=== PATIENT | male | born 1955 | race Caucasian/White ===

== ENCOUNTER → 2023-12-16 08:57 | Outpatient (REF) | payer MEDICARE, OTHER, SELFPAY | LOC: RAD 08:57 | PROVIDERS: ATTENDING PHYSICIAN Internal Medicine Critical Care Medicine; FAMILY PHYSICIAN Nurse Practitioner | DX: R91.1 Solitary pulmonary nodule (principal); J84.9 Interstitial pulmonary disease, unspecified | CPT/HCPCS: 71250 ==

== ENCOUNTER → 2024-03-25 11:50 | Outpatient (REF) | payer MEDICARE, OTHER, SELFPAY | LOC: RAD 11:50 | PROVIDERS: ATTENDING PHYSICIAN Nurse Practitioner Family; FAMILY PHYSICIAN Nurse Practitioner | DX: R91.1 Solitary pulmonary nodule (principal) | CPT/HCPCS: 71250 ==

== ENCOUNTER → 2024-09-16 10:24 | Outpatient (REF) | payer MEDICARE, OTHER, SELFPAY | LOC: HWRAD 10:24 | PROVIDERS: ATTENDING PHYSICIAN Internal Medicine Critical Care Medicine; FAMILY PHYSICIAN Nurse Practitioner | DX: R91.1 Solitary pulmonary nodule (principal) | CPT/HCPCS: 71250 ==

== ENCOUNTER 2024-10-28 12:19 | Emergency (ER) | payer MEDICARE, OTHER, SELFPAY ==
[2024-10-28 12:21] VITALS: BP 129/77
[2024-10-28 12:38] LABS: % Basophils 0.8 % (0-2); % Immature Granulocytes 0.3 % (0-0.5); % Monocytes 5.5 % (1.7-9.3); % Neutrophils 72.4 % (42.2-75.2); Absolute Basophils 0.1 10^3/uL (0-0.2); Absolute Eosinophils 0.2 10^3/uL (0-0.7); Absolute Lymphocytes 1.5 10^3/uL (1.2-3.4); Absolute Monocytes 0.4 10^3/uL (0.1-0.6); Absolute Neutrophils 5.8 10^3/uL (1.4-6.5); Hematocrit 41.1 % (39.0-52.0); Hemoglobin 14.6 g/dL (13.0-18.0); Mean Corp Hgb Conc. 35.5 g/dL (33.0-37.0); Mean Corpuscular Hgb 35.5 pg (27.0-31.0); Mean Platelet Volume 9.9 fL (7.4-10.4); Nucleated Red Blood Cells % 0 % (-); Platelet Count 195 10^3/uL (130-400); Red Blood Cell Count 4.11 10^6/uL (4.70-6.10); Red Cell Dist. Width 12.4 % (11.5-14.5)
[2024-10-28 12:50] LABS: Urine Albumin Negative (Neg - Trace); Urine Bilirubin Negative (Negative); Urine Character Slightly Cloudy (Clear); Urine Color Yellow; Urine Glucose Negative (Negative); Urine Ketone Negative (Negative); Urine Leukocyte Negative (Negative); Urine Nitrite Negative (Negative); Urine Occult Blood Negative (Negative); Urine Specific Gravity 1.005 (<1.030); Urine Urobilinogen Negative (Neg - 1+)
[2024-10-28 12:52] LABS: ALT (SGPT) 37 U/L (0-50); AST (SGOT) 39 U/L (17-59); Albumin 4.2 g/dl (3.5-5.0); Alkaline Phosphatase 62 U/L (38-126); Blood Urea Nitrogen 18 mg/dl (9-20); Calcium 9.4 mg/dl (8.4-10.2); Carbon Dioxide 25 mmol/L (22-30); Chloride 107 mmol/L (98-107); Glucose 128 mg/dl (70-99); Lipase 63 U/L (23-300); Potassium 4.3 mmol/L (3.5-5.1); Sodium 140 mmol/L (135-145); Total Bilirubin 1.5 mg/dl (0.2-1.3); Total Protein 6.5 g/dl (6.3-8.2); eGFR > 60.00
--- NOTE | 2024-10-28 14:15 | ED.GENMED ---
History of Present Illness
General
Chief Complaint: Back Pain
Time Seen by Provider: 10/28/24 14:15
History of Present Illness
History of Present Illness:
TIME OF INITIAL ENCOUNTER: 2:15 PM
HPI: The patient presents with right flank pain ongoing for the past week. He also has abdominal pain in the right lower region however this been ongoing for about a year or so. He has tried ibuprofen intermittently which has not helped much. He
has no urinary symptoms. The pain worsens with certain position changes of the thoracolumbar spine. The pain is at its worst when he is laying flat.
EXAM:
GENERAL: Well appearing in no significant distress
HEENT: Moist oral mucosa
ABDOMEN: Soft with no peritoneal signs, no tenderness, no palpable hernias
NEUROLOGIC: Excellent strength all extremities, no coordination deficits
PSYCHIATRIC: Appropriate mental status, normal insight and judgement
BACK: Some minimal tenderness to palpation just inferior to the right CVA region
EXTREMITIES: Nontender, no edema, moves all extremities equally
SKIN: No rash, no lesions
NUMBER AND COMPLEXITY OF PROBLEMS ADDRESSED AT THE ENCOUNTER
� Chronic conditions affecting care: CAD, high blood pressure, hyperlipidemia, has had cholecystectomy
� Acute Exacerbation and/or Progression of Chronic Illness: This is an acute problem
� Differential Diagnosis includes: Myofascial pain, musculoskeletal etiology, spinal stenosis
AMOUNT AND/OR COMPLEXITY OF DATA TO BE REVIEWED AND ANALYZED
� I performed an independent evaluation of and my interpretation is:
EKG:
CT: CT shows stable compression deformity at L2, no ureteral stones, I informed patient of the coronary calcifications noted
X-rays:
Laboratory Studies: CBC and chemistries unremarkable however the total bili is slightly high at 1.5, transaminases normal, lipase normal, urinalysis shows no blood nor signs of infection
Other:
� Review of other/old records: I reviewed records, the patient was seen here with bronchitis 2 years ago
� Clinical information was obtained by an independent historian: None needed
� Prescriptions/Medications Considered but not given: Offered and considered analgesia for the patient declines
� Further testing considered but not performed:
RISK OF COMPLICATIONS AND/OR MORBIDITY OR MORTALITY OF PATIENT MANAGEMENT
� Social determinants of health affecting care: Lives at home
� Discussion with other providers:
� Escalation of care including admission/observation vs risk of discharge considered: The patient has right flank pain for the past week. He was encouraged to come here by his primary care doctor. Abdominal pain is chronic. He
appears fairly comfortable. He declines analgesia. Obtain CT imaging for further evaluation healthy urinalysis shows no blood or signs of infection. Blood work including white count are normal. Minimal T. bili elevation of doubtful clinical
significance.
ANY OTHER UPDATES:
4:45 PM: I reassessed patient and continues to appear comfortable. Will give paper prescription for Flexeril and he will also speak to his who is a massage therapist.
Past History
Past History
ED Past Medical History: CAD, HTN, Hypercholesterolemia, Other (Obesity, gallbladder disease, hilar adenopathy) and Other (Low testosterone level, started topical testosterone supplement 10/31/2011)
ED Past Surgical History: Cardiac (PTCA x2, circumflex, May 2008) and Cholecystectomy
Social History
Tobacco: Former smoker (Quit smoking 4 months ago)
Alcohol: None
Drug: None
Personal:
Living: with family
Employment: Employed
Family History
Family History: CAD
Phy Exam
Physical Exam
Physical Exam:
See HPI
Course
Orders/Labs/Results
Orders:
Orders
10/28/24 12:28
Complete Blood Count/With Diff Urgent
Comprehensive Metabolic Panel Urgent
Lipase Urgent
Urinalysis Reflex To Culture Urgent
Date Specimen was Collected: 10/28/24
Time Specimen was Collected: 12:24
10/28/24 14:22
CT Abd/pel Without Iv Or Oral Urgent
Comment:
Reason For Exam: R flank pain to abd
Abnormal Lab Results
10/28/24
12:28
RBC 4.11 L 10^6/uL
(4.70-6.10)
MCV 100.0 H fL
(80.0-94.0)
MCH 35.5 H pg
(27.0-31.0)
Lymphocytes % 19.0 L %
(20.5-51.1)
Glucose 128 H mg/dl
(70-99)
Total Bilirubin 1.5 H mg/dl
(0.2-1.3)
10/28/24 12:28
10/28/24 12:28
Vital Signs
Initial and Last Documented VS:
Initial Vital Signs
Temp Pulse Resp BP Pulse Ox
36.4 C 85 19 129/77 96
10/28/24 12:21 10/28/24 12:21 10/28/24 12:21 10/28/24 12:21 10/28/24 12:21
Last Documented Vital Signs
Temp Pulse Resp BP Pulse Ox
36.4 C 70 16 115/74 98
10/28/24 12:21 10/28/24 14:23 10/28/24 14:23 10/28/24 14:23 10/28/24 14:23
*Critical Care Note
Total Time (30-74mins, 75-104mins- exclusive of procedures): Not Applicable
ED Attending Note
-
Portions of this chart may have been created with voice recognition software.� Occasional wrong word or��sound alike� substitutions may have occurred due to the inherent limitations of voice recognition software.
Discharge Plan
Departure
Patient Disposition: Home (Routine Discharge)
Date of Disposition: 10/28/24
Time of Disposition: 16:39
Patient with high blood pressure during this ER visit?: Yes
Discharge Problem:
Back pain
Instructions: Low Back Pain (DC), BLOOD PRESSURE
Prescriptions:
New
cyclobenzaprine 10 mg tablet
10 mg PO TID PRN (Reason: pain) Qty: 21 0RF
No Action
multivitamin with folic acid [Tab-A-Nataliia] 1 TABLET tablet
1 tab PO DAILY
ascorbic acid (vitamin C) [Vitamin C] 1,000 MG tablet
1,000 mg PO DAILY
simvastatin 40 MG tablet
40 mg PO DAILY
aspirin 81 MG tablet,chewable
81 mg PO DAILY
metoprolol succinate 25 MG tablet extended release 24 hr
25 mg PO BID
coenzyme Q10 [CoQ-10] 30 MG capsule
30 mg PO BID
vitamin B complex 1 EACH capsule
1 ea PO DAILY
bupropion HCl 150 MG tablet extended release 24 hr
450 mg PO DAILY
FOLIC ACID
800 mcg PO DAILY
Fish Oil
640 mg PO BID
Vitamin B12
500 mg PO DAILY
coenzyme Q10 [Co Q-10] 30 MG capsule
30 mg PO BID
hydrocodone-acetaminophen [Vicodin] 1 EACH tablet
1 ea PO Q6HPRN PRN (Reason: pain) Qty: 12 0RF
prednisone 10 mg tablet
See Rx Instructions .ROUTE .COMPLEX Qty: 45 0RF
Rx Instructions:
5 tabs day 1-3, 4 tabs day 4-6, 3 tabs day 7-9, 2 tabs day 10-12, 1 tab day 13-15
polymyxin B sulf-trimethoprim [Polytrim] 10,000 unit- 1 mg/mL drops
2 drp ophthalmic (eye) QID 7 Days Qty: 10 0RF
Referrals:
Sayra Mercer CRNP [Family Provider] -
Activity Restrictions/Additional Instructions:
Basic blood work is unremarkable. Urinalysis shows no sign of blood or signs of infection. 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 Some calcifications are noted at the
pancreas however this does not appear to be related to your symptoms. There is also calcification of the prostate gland as well. Your common bile duct diameter remains elevated but unchanged from prior. There is no sign of biliary ductal stone.
There is mild to moderate anterior compression deformity of L2 vertebral body which stable in comparison to imaging from 2022. There is no sign of aortic aneurysm. Try Flexeril I am giving a paper prescription at your request. Follow-up with your
primary care doctor as well.
Interventions
Interventions:
*Risk Screen - Suicide Last Done: 10/28/24 12:23
*General Assessment Last Done: 10/28/24 12:23
*Neglect/Abuse Screening Last Done: 10/28/24 12:23
*ED COVID-19 Vaccine History Last Done: 10/28/24 12:24
ED-Musculoskeletal Assessment Last Done: 10/28/24 14:23
Discharge Date and Time
Print Language: BULGARIAN
[2024-10-28 14:23] VITALS: BP 115/74
== END 2024-10-28 16:54 | disposition home or self-care (01) ==
LOC: EMR 12:19
PROVIDERS: Student in an Organized Health Care Education/Training Program; EMERGENCY PHYSICIAN Emergency Medicine; FAMILY PHYSICIAN Nurse Practitioner
DX: M54.9 Dorsalgia, unspecified (principal); Z87.891 Personal history of nicotine dependence; I10 Essential (primary) hypertension
CPT/HCPCS: 99284; 74176; 80053; 81003; 83690; 85025